=== PATIENT | male | born 1965 | race Two or more races ===

== ENCOUNTER 2024-09-23 18:13 | Emergency (ER) | payer MEDICARE, BC, SELFPAY ==
[2024-09-23] VITALS (7 sets, daily range): BP systolic 103–133; BP diastolic 53–77; PULSE 74–98; RESP 16–22; TEMP 37.2–39.4; O2SAT 94–99; BMI 46.0
--- NOTE | 2024-09-23 19:17 | PD.EDFEVER ---
ED Fever RME/HPI General Chief Complaint: General Adult/Misc Complain Stated Complaint: shivers x 1 day Arrival date/time: 09/23/24 18:13 RME / HPI RME / HPI Narrative: This section includes all my notes and documentations, including HPI, PE, and ED course. Isrrael Suh MD HPI: 59 y/o male with Hx of Hypertension, ESRD, and Diabetes Mellitus Type 2 presents to ED in wheelchair c/o fever, cough, and chills x 3 days. Patient is a dialysis patient who undergoes treatment every Wednesday, Wednesday, and Wednesday. No other complaints. ROS: All negative except as documented in HPI. Physical Exam: General: Alert and oriented. Hacking cough noted. Fever noted. Eyes: Conjunctivae and lids clear. ENT: No nasal congestion. Pharynx normal. TM normal bilaterally. Neck: Supple. Heart: RRR. Lungs: No respiratory distress. Mildly decreased air movement with rales and wheezing. Abdomen: Soft and nontender. Back: No CVA tenderness. Skin: Warm and dry. Neuro: Alert and oriented X 3. Patient initially given Rocephin for possible sepsis. I reviewed all diagnostic test results. My interpretation of the EKG is: Sinus rhythm (92 bpm) with right BBB and nonspecific ST-T changes. J My interpretation of the chest x-ray is increased vascular congestion. Blood tests and urine tests remarkable for Cr 8.1, Glu 381, BNP 292. COVID-negative. Influenza positive A & B. At this point, diagnoses include Influenza. Other treatment here included Tylenol, Toradol, Solu-Medrol, DuoNeb, insulin, Lasix, morphine, topical NTG, and Tamiflu. Significant improvement noted. Recommended a trial of outpatient treatment. Based on my best medical judgment, made decision no further evaluation or treatment indicated at this time. Patient understands and agrees to the discharge instructions customized and printed, see below. Discharge instructions from Dr. Suh: --You tested positive for influenza A and influenza B. --No physical exertion for 3 days to help rest your lungs. --No smoking and no exposure to smoking or pets or dust or humidity. --Tamiflu to kill the influenza germs. --Prednisone to help decrease inflammation of the lungs. --Ibuprofen 400 mg every 8 hours today and tomorrow.? Then as needed for fever or pain. --Tylenol with codeine for severe cough or pain. --Albuterol 2 puffs every 4-6 hours as needed for cough or shortness or breath.?? ?Try to eat regular nutritious meals. --See a private doctor next week if not completely better. --Seek immediate medical care with significant worsening or with any concerns. Isrrael Suh MD Related Data Home Medications ?Medication ?Instructions ?Recorded ?Confirmed carvedilol 25 mg tablet 25 mg PO BID 08/05/18 08/05/18 furosemide 80 mg tablet 80 mg PO QAM 08/05/18 08/05/18 hydralazine 50 mg tablet 50 mg PO BID 08/05/18 08/05/18 insulin detemir U-100 100 unit/mL See Rx Instructions .Route .COMPLEX 08/05/18 08/05/18 subcutaneous solution (Levemir U-100 Insulin) isosorbide mononitrate 30 mg 30 mg PO QAM 08/05/18 08/05/18 tablet,extended release 24 hr nifedipine 90 mg tablet,extended 90 mg PO QDAY 08/05/18 08/05/18 release 24 hr Previous Rx's ?Medication ?Instructions ?Recorded ciprofloxacin HCl 500 mg tablet 500 mg PO BID #20 tabs 08/05/18 acetaminophen 300 mg-codeine 30 mg 2 tab PO Q8H PRN pain #20 tabs 09/23/24 tablet albuterol sulfate 90 mcg/actuation 2 puff inhalation Q6H PRN 09/23/24 aerosol inhaler shortness of breath or wheezing #8.5 grams ondansetron 4 mg disintegrating 4 mg PO TID PRN nausea and 09/23/24 tablet vomiting 30 days #10 tabs oseltamivir 75 mg capsule (Tamiflu) 75 mg PO BID 5 days #10 caps 09/23/24 prednisone 20 mg tablet 20 mg PO BID 3 days #6 tabs 09/23/24 Allergies Allergy/AdvReac Type Severity Reaction Status Date / Time latex Allergy Intermediate IRRATIATION Verified 09/23/24 18:17 Review of Systems Review of Systems Systems Reviewed: All systems reviewed, normal except as documented Past Medical History Past Medical History CARDIAC: Positive Cardiac Disorders and Hypertension GENITOURINARY: Positive Renal Disease ENT: 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 Quality Measures none Orders Category Date Time Status Bedside COVID-19 Antigen Test NOW Care 09/23/24 19:18 Active Bedside Influenza A&B Antigen Test NOW Care 09/23/24 19:18 Completed EKG (ED ONLY) *Do not use* NOW Care 09/23/24 19:21 Completed Saline [Insert IV] NOW Care 09/23/24 19:18 Active EKG (ED Only) Stat Exams 09/23/24 19:21 Draft XR chest 1V portable Stat Exams 09/23/24 19:21 Completed BNP [B-Type Natriuretic Peptide] Stat Lab 09/23/24 20:10 Completed Bilirubin,Direct Stat Lab 09/23/24 20:10 Completed Blood Culture (Lab) Stat Lab 09/23/24 20:13 Received CBC Stat Lab 09/23/24 20:10 Completed CMP [Comprehensive Metabolic Panel] Stat Lab 09/23/24 20:10 Completed CRP [C-Reactive Protein] Stat Lab 09/23/24 20:10 Completed ESR [Sed Rate (ESR)] Stat Lab 09/23/24 20:10 Completed Free T4 (Free Thyroxine) Stat Lab 09/23/24 20:10 Completed Lactate (Lactic Acid) Stat Lab 09/23/24 20:10 Completed Magnesium Stat Lab 09/23/24 20:10 Completed PT [Prothrombin Time with INR] Stat Lab 09/23/24 20:10 Completed PTT [Partial Thromboplastin Time] Stat Lab 09/23/24 20:10 Completed Procalcitonin Stat Lab 09/23/24 20:10 Completed TSH [Thyroid Stimulating Hormone] Stat Lab 09/23/24 20:10 Completed Troponin I Stat Lab 09/23/24 20:10 Completed UA, C/S IF [Urinalysis, C/S if Indicated] Stat Lab 09/23/24 19:22 Completed VBG [Venous Blood Gas] Stat Lab 09/23/24 20:10 Completed Acetaminophen Ivpb [Ofirmev Inj] Med 09/23/24 19:19 Discontinued 1,000 mg in 100 ml IV X1 Albuterol/Ipratr Rt Kelsie [Duoneb Rt Kelsie] Med 09/23/24 19:19 Discontinued 3 ml INH X1 ONE DiphenhydrAMINE INJ [Benadryl Inj] Med 09/23/24 19:19 Discontinued 50 mg IVP X1 STA Furosemide Inj [Lasix Inj] Med 09/23/24 21:14 Discontinued 80 mg IVP X1 ONE Ibuprofen Tab [Motrin Tab] Med 09/23/24 21:46 Discontinued 800 mg PO X1 ONE Insulin Regular Med 09/23/24 21:15 Discontinued 5 unit IV X1 ONE Ketorolac Inj [Toradol Inj] Med 09/23/24 19:19 Discontinued 15 mg IVP X1 ONE MethylPREDNISolone.* [SoluMEDROL Inj] Med 09/23/24 19:19 Discontinued 125 mg IVP X1 ONE Morphine Inj Med 09/23/24 21:14 Discontinued 2 mg IVP X1 ONE Nitroglycerin Oint 2% [Nitro-paste Oint 2%] Med 09/23/24 21:14 Discontinued 1 inch TOP X1 ONE Oseltamivir [Tamiflu] Med 09/23/24 21:54 Discontinued 75 mg PO X1 ONE Sodium Chloride 0.9% 250 ml [Ns] 250 ml Med 09/23/24 21:46 Discontinued IV 500 mls/hr cefTRIAXone/D5w 1gm IV premix [Rocephin/D5w 1gm IV Med 09/23/24 19:19 Discontinued premix] 1 gm in 50 ml IV X1 Vital Signs Vital signs: Vital Signs Temperature 103.0 F H 09/23/24 18:24 Pulse Rate 96 09/23/24 18:24 Respiratory Rate 20 09/23/24 18:24 Blood Pressure 124/70 09/23/24 18:24 Pulse Oximetry (%) 95 09/23/24 18:24 Oxygen Delivery Method Room Air 09/23/24 18:24 Fever MDM Narrative MDM Narrative:: Scribe Attestation: IMicheline, am scribing for and in the presence of Dr. Suh. Provider Notation: Although this document has been carefully reviewed, there may still be some phonetic and other typographical errors.? These errors are purely grammatical due to imperfections in the software program and should not be construed in any way to? compromise the substance of the patient's medical care during this visit. 59 y/o male with Hx of Hypertension, Renal Disease, and Diabetes Mellitus Type 2 presents to ED in wheelchair c/o fever, cough, and chills x 3 days. Patient is a dialysis patient who undergoes treatment every Wednesday, Wednesday, and Wednesday. 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 No other complaints. Patient data External records reviewed:: [facility] previous records (No recent ED records available for review.) Clinical information provided by:: patient Social determinants that could affect healthcare access:: none Patient has the following chronic illnesses:: Hypertension, Renal Disease, Retinal Detachment, Diabetes Mellitus Type 2 How is presenting disease/condition affected by chronic disease/condition?: exacerbated by Evaluation data The following diagnostics were reviewed and interpreted by me:: lab results, radiology exam(s) and EKG tracing(s) (My interpretation of the EKG is: Sinus rhythm (92 bpm) with right BBB and nonspecific ST-T changes. Isrrael Suh MD) Lab and/or radiology exams considered but not ordered:: None Interpretation Summary: I reviewed all diagnostic test results. My interpretation of the EKG is: Sinus rhythm (92 bpm) with right BBB and nonspecific ST-T changes. J My interpretation of the chest x-ray is increased vascular congestion. Blood tests and urine tests remarkable for Cr 8.1, Glu 381, BNP 292. COVID-negative. Influenza positive A & B. Medications / Prescriptions Medications or Prescriptions considered but not ordered:: None Medication administrations:: Medication Administration History Discontinued Medications Albuterol/Ipratropium (Albuterol/Ipratropium (Duoneb) Rt Kelsie 3 Ml Nebu) 3 ml INH X1 ONE Stop: 09/23/24 19:20 Last Admin: 09/23/24 20:51 Dose: 3 ml Documented By: DM Diphenhydramine HCl (Diphenhydramine Inj 50 Mg/Ml Vial) 50 mg IVP X1 STA Stop: 09/23/24 19:20 Last Admin: 09/23/24 20:39 Dose: Not Given Documented By: BD Non-Admin Reason: Cancelled by Provider Furosemide (Furosemide Inj 10 Mg/Ml 4ml Vial) 80 mg IVP X1 ONE Stop: 09/23/24 21:15 Acetaminophen (Ofirmev Inj) 1,000 mg in 100 mls @ 250 mls/hr IV X1 ONE Stop: 09/23/24 19:42 Last Infusion: 09/23/24 21:30 Dose: Infused Documented By: Admin: 09/23/24 20:40 Dose: 250 mls/hr Documented By: BD Ceftriaxone Sodium/Dextrose (Rocephin/D5w 1gm Iv Premix) 1 gm in 50 mls @ 100 mls/hr IV X1 ONE Stop: 09/23/24 19:48 Last Infusion: 09/23/24 21:04 Dose: Infused Documented By: Admin: 09/23/24 20:39 Dose: 100 mls/hr Documented By: BD Sodium Chloride (Ns) 250 mls @ 500 mls/hr IV .Q30M ONE Stop: 09/23/24 22:15 Ibuprofen (Ibuprofen Tab 400 Mg Tablet) 800 mg PO X1 ONE Stop: 09/23/24 21:47 Insulin Human Regular (Insulin Hum Regular 1 Unit/0.01 Ml (Per Unit)) 5 unit IV X1 ONE Stop: 09/23/24 21:16 Ketorolac Tromethamine (Ketorolac Inj 30 Mg/Ml Vial) 15 mg IVP X1 ONE Stop: 09/23/24 19:20 Last Admin: 09/23/24 20:37 Dose: 15 mg Documented By: BD Methylprednisolone Sodium Succinate (Methylprednisolone Sod Succ 62.5 Mg/Ml 2ml Vial) 125 mg IVP X1 ONE Stop: 09/23/24 19:20 Last Admin: 09/23/24 20:36 Dose: 125 mg Documented By: BD Morphine Sulfate (Morphine Sulf Inj 10 Mg/Ml Vial) 2 mg IVP X1 ONE Stop: 09/23/24 21:15 Nitroglycerin (Nitroglycerin Oint 2% 1 Inch Packet) 1 inch TOP X1 ONE Stop: 09/23/24 21:15 Oseltamivir Phosphate (Oseltamivir 75 Mg Capsule) 75 mg PO X1 ONE Stop: 09/23/24 21:55 Initially, patient was given Rocephin for possible sepsis. Other treatment here included Tylenol, Toradol, Solu-Medrol, DuoNeb, insulin, Lasix, morphine, topical NTG, and Tamiflu. Consultations Consultation(s) initiated? (list below): No Diagnosis Fever Differential Diagnosis: cellulitis, fever of unknown origin, gastroenteritis, community acquired pneumonia, pyelonephritis, viral infection, sepsis and influenza Most likely diagnosis given after review of the tests above:: Influenza Admission Indicated Admission indicated?: not indicated Explain why admission is indicated or not indicated:: With significant improvement, there was no indication for admission. Admission Request Was there a request for admission?: No Disposition Plan Disposition Plan: Discharge Discharge Attestation Discharge Attestation: The patient and all family members were given an opportunity to ask questions and understood the discharge instructions. Discharge instructions specifically effects, indications for sooner follow up or return to the emergency department, and the expected course of current diagnosis. Patient condition: Stable Discharge Plan Plan Patient Disposition: HOME (Self Care) Prescriptions/Referrals Prescriptions/Med Rec: New acetaminophen-codeine 300-30 mg tablet 2 tab PO Q8H MDD 6 PRN (Reason: pain) Qty: 20 0RF oseltamivir [Tamiflu] 75 mg capsule 75 mg PO BID 5 Days Qty: 10 0RF albuterol sulfate 90 mcg/actuation HFA aerosol inhaler 2 puff inhalation Q6H PRN (Reason: shortness of breath or wheezing) Qty: 8.5 0RF ondansetron 4 mg tablet,disintegrating 4 mg PO TID PRN (Reason: nausea and vomiting) 30 Days Qty: 10 0RF prednisone 20 mg tablet 20 mg PO BID 3 Days Qty: 6 0RF Taper: Prednisone Taper 20 mg DAILY for 2 Days and 0 Hour 10 mg DAILY for 2 Days and 0 Hour 5 mg DAILY for 7 Days and 0 Hour No Action carvedilol 25 mg Tablet 25 mg PO BID isosorbide mononitrate 30 mg Tablet Extended Release 24 Hr 30 mg PO QAM furosemide 80 mg Tablet 80 mg PO QAM nifedipine 90 mg Tablet Extended Release 24hr 90 mg PO QDAY hydralazine 50 mg Tablet 50 mg PO BID Levemir U-100 Insulin 100 unit/mL Solution See Rx Instructions .ROUTE .COMPLEX Rx Instructions: ACHS insulin by scale ciprofloxacin HCl 500 mg tablet 500 mg PO BID Qty: 20 0RF Referrals: Ace Segura MD [Primary Care Provider] - In 1 week Problem List Clinical Impression: Influenza Patient/Caregiver Discharge Instructions Discharge Activity: activity as tolerated Education Materials: ED Influenza (Adult) Additional Instructions: Discharge instructions from Dr. Suh: --You tested positive for influenza A and influenza B. --No physical exertion for 3 days to help rest your lungs. --No smoking and no exposure to smoking or pets or dust or humidity. --Tamiflu to kill the influenza germs. --Prednisone to help decrease inflammation of the lungs. --Ibuprofen 400 mg every 8 hours today and tomorrow.? Then as needed for fever or pain. --Tylenol with codeine for severe cough or pain. --Albuterol 2 puffs every 4-6 hours as needed for cough or shortness or breath.?? ?Try to eat regular nutritious meals. --See a private doctor next week if not completely better. --Seek immediate medical care with significant worsening or with any concerns. Print Language: Greenlandic Stand Alone Forms: [employer] Award Info., Patient Portal Info Letter
--- NOTE | 2024-09-23 19:21 | EKG_ITS ---
[facility] Test Date: 2024-09-23 Pat Name: EPIFANIO SUAZO Department: Room: - Gender: Male [employer]: : 1965 Requested By: Isrrael Tee Order Number: [id number] Reading MD: Isrrael Tee Measurements Intervals [place] Rate: 92 P: 15 DE: 164 QRS: -62 QRSD: 157 T: 20 QT: 379 QTc: 471 Interpretive Statements SINUS RHYTHM RIGHT BUNDLE BRANCH BLOCK [120+ ms QRS DURATION, UPRIGHT V1, 40+ ms S IN I/aVL/V4/V5/V6] LEFT ANTERIOR FASCICULAR BLOCK [QRS AXIS <= -45, QR IN I, RS IN II] PROBABLE SEPTAL MYOCARDIAL INFARCTION , PROBABLY OLD [35 ms Q WAVE IN V1/V2] No previous ECG available for comparison /store/S0/[id number]/[id number].pdf
--- NOTE | 2024-09-23 19:21 | XR_ITS ---
Examination: AP chest single view Technique one AP portable semiupright chest single view Exam date and time: September 23, 2024 at 2003 hours INDICATION: Chest pain coughing fever today. FINDINGS: Normal heart size Mild to moderate vascular congestion. No lobar pneumonia. IMPRESSION: Mild to moderate vascular congestion
[2024-09-23 20:29] LABS: Base Excess, Venous 5 (-3-3); O2 Saturation, Venous 87 % (96-97); PCO2, Venous 29 mmHg (36-56); PO2, Venous 44 mmHg (15-58); pH, Venous 7.56 (7.33-7.66)
[2024-09-23 20:33] LABS: Basophils % (Auto) 0 % (0-2.5); Eosinophils % (Auto) 0 % (0-10); Hematocrit 29.6 % (41.0-53.0); Hemoglobin 9.9 g/dL (13.5-16.0); Immature Granulocytes % (Auto) 1 % (0-0); Immature Granulocytes Auto 0.06 Thou/mm3 (0.00-0.00); Lymphocytes # (Auto) 0.3 Thou/mm3 (1.0-4.8); Lymphocytes % (Auto) 3 % (10-50); Mean Corpuscular HGB Conc 33.4 g/dl (31.0-37.0); Mean Corpuscular Hemoglobin 30.4 pg (25.0-35.0); Mean Corpuscular Volume 91 fL (80-100); Monocytes # (Auto) 0.3 Thou/mm3 (0.0-0.8); Monocytes % (Auto) 3 % (0-12); Neutrophils # (Auto) 9.5 Thou/mm3 (1.8-7.7); Neutrophils % (Auto) 93 % (37-80); Nucleated Red Blood Cell % 0 /100 WBC (0); Platelet Count 188 Thou/mm3 (140-440); RDW Standard Deviation 47.9 fL (35.1-43.9); Red Blood Count 3.26 Miln/mm3 (4.50-5.90); White Blood Count 10.2 Thou/mm3 (3.8-10.6)
[2024-09-23] MEDS: MethylPREDNISolone SOD SUCC 62.5 MG/ML 2ML VIAL 125 MG IVP (20:36)
[2024-09-23] MEDS: KETOROLAC INJ 30 MG/ML VIAL 15 MG IVP (20:37)
[2024-09-23] MEDS: cefTRIAXone/D5w 1gm IV premix 1 GM/50 ML BAG IV (20:39)
[2024-09-23] MEDS: ACETAMINOPHEN IVPB 1,000 MG/100 ML VIAL 250 MG IV (20:40)
[2024-09-23] MEDS: ALBUTEROL/IPRATROPIUM (Duoneb) RT SOL 3 ML NEBU INH (20:51)
[2024-09-23 20:55] LABS: INR 1.1 (0.9-1.3); Partial Thromboplastin Time 27.4 Seconds (22.0-36.0); Prothrombin Time 12.4 Seconds (9.0-12.2)
--- NOTE | 2024-09-23 20:56 | PC.NURSE ---
IN AND OUT NOT DONE PT USED URINAL
[2024-09-23 20:58] LABS: B-Type Natriuretic Peptide 292 pg/mL (0-100); Sed Rate (ESR) 73 mm/hr (0-20)
[2024-09-23 21:09] LABS: Anion Gap 14 (7-16); BUN/Creatinine Ratio 7 Ratio (12-20); Bilirubin,Direct 0.3 mg/dL (0.0-0.3); Bilirubin,Total 0.7 mg/dL (0.3-1.2); Blood Urea Nitrogen 53 mg/dL (9-23); Calcium 8.2 mg/dL (8.3-10.6); Carbon Dioxide 27.5 mMol/L (20.0-31.0); Chloride 90 mMol/L (98-107); Creatinine (Component) 8.1 mg/dL (0.6-1.3); Glucose 381 mg/dL (74-106); Magnesium 1.6 mg/dL (1.6-2.6); Osmolality,Calculated 293 (275-295); Potassium 4.7 mMol/L (3.4-5.1); Sodium 131 mMol/L (136-145); eGFR 7 See Note
[2024-09-23 21:10] LABS: Alanine Aminotransferase 22 U/L (10-49); Albumin, Serum 3.5 gm/dL (3.5-5.0); Albumin/Globulin Ratio 0.9 (1.2-2.2); Alkaline Phosphatase 99 U/L (46-116); Aspartate Amino Transferase 29 U/L (0-34); C-Reactive Protein > 10.0 mg/dL (0.0-0.9); Calcium (Corrected) 8.6 mg/dL (8.5-10.1); Free T4 (Free Thyroxine) 1.21 ng/dL (0.89-1.76); Globulin 3.9 gm/dL (2.3-3.5); Procalcitonin 4.21 ng/ml (0.0-0.49); Thyroid Stimulating Hormone 2.94 uIU/mL (0.55-4.78); Total Protein 7.4 gm/dL (5.7-8.2); Troponin I 0.041 ng/mL (0.0-0.045)
[2024-09-23 21:20] LABS: Collection Type, Urine Clean Catch
[2024-09-23 21:36] LABS: Bilirubin,Urine Negative (Negative); Blood,Urine Trace (Negative); Clarity,Urine Clear (Clear/Hazy); Color,Urine Yellow (Lt Yel-Yel); Glucose, Urine 4+ (Negative); Ketones,Urine Negative (Negative); PH,Urine 7.5 (5.0-7.0); Protein,Urine 2+ (Neg - Trace); Specific Gravity,Urine 1.014 (1.001-1.035)
[2024-09-23 21:37] LABS: Bacteria,Urine Rare; Culture Indicated,Urine Not Indicated; Leukocyte Esterase,Urine Negative (Negative); Nitrite,Urine Negative (Negative); RBC,Urine 7 /hpf (0-3); Squamous Epithelial Cell,Urine 5 /hpf (0-5); Urobilinogen,Urine 0.2 mg/dL (0.0-1.0); WBC,Urine 8 /hpf (0-5)
--- NOTE | 2024-09-23 22:28 | PC.NURSE ---
NOTIFIED B/P 92/56 HR 80 LASIX AND NITRO WAS ORDERED PER DO NOT ADMIN CANCEL LASIX AND NITRO
[2024-09-23] MEDS: IBUPROFEN TAB 400 MG TABLET 800 MG PO (22:30)
[2024-09-23] MEDS: OSELTAMIVIR 75 MG CAPSULE PO (22:30)
[2024-09-23] MEDS: MORPHINE SULF INJ 10 MG/ML VIAL 2 MG IVP (22:31)
[2024-09-23] MEDS: INSULIN HUM REGULAR 1 UNIT/0.01 ML (PER UNIT) 5 UNIT IV (22:44)
[2024-09-23] MEDS: SODIUM CHLORIDE 0.9% 250 ML 250 ML 500 ML IV (22:46)
--- NOTE | 2024-09-23 23:14 | PC.NURSE ---
notified dr. lane pt glucose 410
[2024-09-23] MEDS: INSULIN HUM REGULAR 1 UNIT/0.01 ML (PER UNIT) 10 UNIT IV (23:20)
--- NOTE | 2024-09-23 23:43 | PC.NURSE ---
per dr. ariana schwartz to dc with blood glucose 363
== END 2024-09-23 23:50 | disposition home or self-care (01) ==
PROVIDERS: Emergency Provider Emergency Medicine; PCP Family Medicine
DX: J11.1 Influenza due to unidentified influenza virus with other respiratory manifestations (principal); E11.22 Type 2 diabetes mellitus with diabetic chronic kidney disease; I12.0 Hypertensive chronic kidney disease with stage 5 chronic kidney disease or end stage renal disease; N18.6 End stage renal disease; Z99.2 Dependence on renal dialysis
CPT/HCPCS: 36415; 71045; 80053; 81001; 82248; 82803; 83605; 83735; 83880; 84145; 84439; 84443; 84484; 85025; 85610; 85652; 85730; 86140; 87040; 87400; 87811; 93005; 94640; 96365; 96375; 99284; A9270; J0131; J0696; J1815; J1885; J2270; J2919; J7050